=== PATIENT | male | born 1960 | race Asian ===

== ENCOUNTER 2022-11-20 07:53 | Outpatient (CLI) | payer BC | END 2022-11-20 07:54 | disposition home or self-care (01) | LOC: CSHULT 07:53 | PROVIDERS: ATTEND Internal Medicine Gastroenterology | DX: R63.4 Abnormal weight loss (principal); B18.1 Chronic viral hepatitis B without delta-agent; Z86.010 Personal history of colon polyps | CPT/HCPCS: 76705 ==

== ENCOUNTER 2023-06-27 08:32 | Outpatient (CLI) | payer BC ==
[2023-06-27] MEDS ORDERED: Magnevist 469MG/ML 20 ML VIAL ONE (09:36)
== END 2023-06-27 08:33 | disposition home or self-care (01) ==
LOC: CSHMRI 08:32
PROVIDERS: ATTEND Internal Medicine Gastroenterology
DX: B18.1 Chronic viral hepatitis B without delta-agent (principal); K76.89 Other specified diseases of liver
CPT/HCPCS: 74183; 82565; A9579

== ENCOUNTER 2024-08-15 12:59 | Outpatient (CLI) | payer BC ==
[2024-08-15] MEDS ORDERED: Magnevist 469MG/ML 20 ML VIAL ONE (13:38)
== END 2024-08-15 13:00 | disposition home or self-care (01) ==
LOC: CSHMRI 12:59
PROVIDERS: ATTEND Internal Medicine Gastroenterology
DX: B18.1 Chronic viral hepatitis B without delta-agent (principal); R63.5 Abnormal weight gain; R79.89 Other specified abnormal findings of blood chemistry; Z86.0100 Personal history of colon polyps, unspecified; K76.89 Other specified diseases of liver
CPT/HCPCS: 36415; 74183; 82565